=== PATIENT | male | born 1970 | race Caucasian/White ===

== ENCOUNTER 2017-05-01 17:46 | Inpatient (IN) | payer BC, OTHER ==
[2017-05-02] MEDS: SOD CHLORIDE 0.9% 500 ML IV (00:53)
[2017-05-02 01:12] LABS: ADD MAN DIFF? NO
[2017-05-02 01:13] LABS: WHITE BLOOD COUNT 4.8 10^3/ul (4.8-10.8)
[2017-05-02 01:13] LABS: BASOPHILS % 0.4 % (0.0-2.0); EOSINOPHILS # 0.1 10^3/ul (0.0-0.5); EOSINOPHILS % 2.1 % (0.0-7.0); HEMATOCRIT 38.8 % (42.0-52.0); HEMOGLOBIN 13.6 g/dl (14.0-18.0); LYMPHOCYTES # 1.5 10^3/ul (0.8-2.9); LYMPHOCYTES % 30.8 % (15.0-51.0); MEAN CORPUSCULAR HEMOGLOBIN 31.1 pg (29.0-33.0); MEAN CORPUSCULAR HGB CONC 35.1 g/dl (32.0-37.0); MEAN CORPUSCULAR VOLUME 88.8 fl (82.0-101.0); MEAN PLATELET VOLUME 10.9 fl (7.4-10.4); MONOCYTE # 0.6 10^3/ul (0.3-0.9); MONOCYTES % 11.4 % (0.0-11.0); NEUTROPHIL # 2.7 10^3/ul (1.6-7.5); NEUTROPHILS % 55.1 % (39.0-77.0); PLATELET COUNT 139 10^3/UL (140-415); POSITIVE DIFF @See below; RED BLOOD COUNT 4.37 10^6/ul (4.70-6.10); RED CELL DISTRIBUTION WIDTH 10.7 % (11.5-14.5)
[2017-05-02 02:31] LABS: ALANINE AMINOTRANSFERASE 34 IU/L (13-69); ALBUMIN 4.8 g/dl (3.3-4.9); ALBUMIN/GLOBULIN RATIO 1.54; ALKALINE PHOSPHATASE 53 IU/L (42-121); ANION GAP 21 (8-16); ASPARTATE AMINO TRANSFERASE 26 IU/L (15-46); BILIRUBIN,INDIRECT 1.4 mg/dl (0-1.1); BILIRUBIN,TOTAL 1.4 mg/dl (0.2-1.3); BLOOD UREA NITROGEN 12 mg/dl (7-20); CALCIUM 9.6 mg/dl (8.4-10.2); CARBON DIOXIDE 27 mmol/L (21-31); CHLORIDE 102 mmol/L (97-110); CREATININE 0.83 mg/dl (0.61-1.24); GLUCOSE 87 mg/dl (70-220); SODIUM 146 mmol/L (135-144); TOTAL PROTEIN 7.9 g/dl (6.1-8.1)
[2017-05-02 02:43] LABS: B-TYPE NATRIURETIC PEPTIDE 18 PG/ML (0-125)
[2017-05-02 02:53] LABS: TROPONIN-I < 0.012 ng/ml (0.00-0.12)
[2017-05-02] MEDS ORDERED: ACETAMINOPHEN 325 MG TAB PO (07:30)
[2017-05-02] MEDS ORDERED: ONDANSETRON 4 MG INJ IV (07:30)
[2017-05-02] MEDS ORDERED: NITROGLYCERIN (SL) 0.4 MG TAB SL (07:30)
[2017-05-02] MEDS ORDERED: morphine LIQ (10 MG/5 ML) CUP PO (07:30)
[2017-05-02] MEDS ORDERED: NACL 0.9% 3 ML SYG IV (07:30)
[2017-05-02] MEDS ORDERED: morphine 2 MG INJ IV (07:30)
[2017-05-02] MEDS ORDERED: ALBUTEROL/IPRATROPIUM (NEB) 3 ML AMP HHN (07:30)
[2017-05-02 08:07] LABS: CREATINE KINASE 88 IU/L (23-200)
[2017-05-02 08:22] LABS: CK INDEX 1.3
[2017-05-02 08:24] LABS: CK-MB 1.15 ng/ml (0.0-2.4); TROPONIN-I < 0.012 ng/ml (0.00-0.12)
[2017-05-02] MEDS ORDERED: ENOXAPARIN 40 MG/0.4 ML SYG SC (09:00)
[2017-05-02] MEDS: FAMOTIDINE 20 MG TAB PO (11:21)
[2017-05-02] MEDS: LIDOCAINE/MYLANTA 40 ML BTL PO (11:21)
[2017-05-02 13:13] LABS: CREATINE KINASE 73 IU/L (23-200)
[2017-05-02 13:26] LABS: CK INDEX 1.3
[2017-05-02 13:29] LABS: CK-MB 0.96 ng/ml (0.0-2.4); TROPONIN-I < 0.012 ng/ml (0.00-0.12)
[2017-05-02] MEDS ORDERED: FAMOTIDINE 20 MG TAB PO (21:00)
[2017-05-03] MEDS ORDERED: ASPIRIN 81 MG TAB PO (09:00)
== END 2017-05-02 15:03 | disposition home or self-care (01) | DRG 313 ==
LOC: TEL 05-02 05:08 → E/R 05-02 15:03
DX: R07.9 Chest pain, unspecified (principal); R10.13 Epigastric pain
CPT/HCPCS: 71045; 80053; 82550; 82553; 83880; 84484; 85025; 93005; 93306